=== PATIENT | male | born 1985 | race Caucasian/White ===

== ENCOUNTER 2020-04-16 17:27 | Emergency (ER) | payer OTHER, SELFPAY ==
[2020-04-16] VITALS (7 sets, daily range): BP systolic 137–153; BP diastolic 86–92; PULSE 75–97; RESP 15–22; TEMP 36.4; O2SAT 95–98
--- NOTE | ~2020-04-16 | XR_ITS ---
EXAMINATION: XR chest 2V DATE: 04/16/2020 19:25 INDICATION: Chest tightness, lightheadedness, nausea and arm tingling. TECHNIQUE: PA and lateral views of the chest were obtained. COMPARISON: Chest radiograph dated 10/05/2011 FINDINGS: The lungs remain clear with no focal airspace opacities, pulmonary edema, pleural effusion or pneumot horax. The cardiomediastinal silhouette is normal. Cholecystectomy clips in right upper quadrant. Bon es are unremarkable. IMPRESSION: 1. No acute cardiopulmonary disease. Reviewed, dictated and finalized at location H. ENT FORM ASSEMBLER
--- NOTE | 2020-04-16 18:04 | ECG_ITS ---
Measurements Intervals [place] Rate: 92 P: 81 HI: 213 QRS: 40 QRSD: 89 T: -7 QT: 328 QTc: 406 Interpretive Statements ATRIAL TACHYCARDIA WITH VARIABLE BLOCK NONSPECIFIC T-WAVE ABNORMALITY- INFERIOR LEADS ABNORMAL ECG Electronically Signed On 04-17-2020 8:16:39 HANDBOOK WRITER by Quinn Sawant D.O.
--- NOTE | 2020-04-16 18:17 | ED.CHESTPAIN ---
HPI - Chest Pain General Chief Complaint: Chest Pain Stated Complaint: CHEST TIGHTNESS, L ARM HEAVINESS Time Seen by Provider: 04/16/20 18:07 Source: patient Mode of arrival: ambulatory Limitations: no limitations History of Present Illness HPI narrative: This is a 34-year-old male that presents the emergency department for an episode of chest tightness today. Reports he was at work after lunch. Reports he stood up and started to feel very lightheaded. He noted tightness in his chest. He suddenly felt nauseous and vomited. Reports since that time he has just not felt right today. Reports 5 days ago he had a syncopal episode. Reports he felt like he needed to belch and the next thing he remembers he was on the floor. Reports they called EMS, but he did not want to be evaluated. Reports history of SVT and abnormal heart rhythm for which she sees an telephone surveyor at [place]. Does still have some chest discomfort and reflux. Denies fever, shortness of breath, or lower extremity edema. Related Data Home Medications Medication Instructions Recorded Confirmed lisinopril 20 mg tablet 20 mg PO DAILY 12/31/19 01/08/20 Allergies Allergy/AdvReac Type Severity Reaction Status Date / Time codeine Allergy Mild Unknown Verified 04/16/20 18:51 iodine Allergy Mild Unknown Verified 04/16/20 18:51 mold Allergy Mild Unknown Verified 04/16/20 18:51 shellfish derived Allergy Mild Cough Verified 04/16/20 18:51 SEAFOOD Allergy Mild Cough Uncoded 12/31/19 08:44 Review of Systems Review of Systems: Narrative: CONSTITUTIONAL: Denies fever CARDIOVASCULAR: Reports chest pain. Denies palpitations, or edema. RESPIRATORY: Denies cough or dyspnea. GASTROINTESTINAL: Reports nausea, vomiting All systems reviewed & are unremarkable except as noted in HPI and below PMFSH Past Medical History Medical History (Updated 04/16/20 @ 21:50 by Zoila Fields PA-C) History of hypothyroidism History of paroxysmal supraventricular tachycardia Hypertension Surgical History Surgical History H/O cardiac radiofrequency ablation History of cholecystectomy Family History Family History Mother Patient's mother is in good health Father Family history of thyroid disease Family history of gastrointestinal disorder Sibling Family history of thyroid disease Social History Social History Smoking status: Never smoker Second hand tobacco smoke exposure: No Alcohol intake: current Drinks per week: 42 Substance use: never Gender identity (if verbalized by the patient): Male Exam Narrative: Exam Narrative: GENERAL: Well-appearing, well-nourished, and in no acute distress. HEAD: Normocephalic, atraumatic. EYES: PERRLA and EOMI. ENT: Nares clear, no rhinorrhea or epistaxis. Mucous membranes moist. Oropharynx without tonsillar hypertrophy exudate or other lesions. Bilateral TMs pearly wilson non-bulging NECK: Supple. No adenopathy or masses. No carotid bruits or JVD CHEST: Clear to auscultation. No respiratory distress. No wheezes rales or rhonchi HEART: Regular rate and rhythm. No murmur heard. Normal peripheral pulses. EXTREMITIES: Normal range of motion. No edema. SKIN: Warm, dry, no rash. NEURO: No focal deficits. Alert and oriented x3. PSYCH: Normal mood and affect Course Vital Signs Vital signs: Vital Signs Temperature 97.5 F L 04/16/20 17:41 Pulse Rate 97 04/16/20 17:41 Respiratory Rate 16 04/16/20 17:41 Blood Pressure 137/92 H 04/16/20 17:41 Pulse Oximetry 95 04/16/20 17:41 Temperature 97.5 F L 04/16/20 17:41 Pulse Rate 82 04/16/20 19:40 Respiratory Rate 18 04/16/20 19:40 Blood Pressure 153/86 H 04/16/20 19:40 Pulse Oximetry 98 04/16/20 19:40 MDM - Chest Pain MDM Narrative Medical decision making narrative: Patient p
[2020-04-16 18:23] LABS: Basophils Absolute Auto 0.1 K/mm3 (0.0-0.1); Eosinophils Absolute Auto 0.1 K/mm3 (0-0.3); Eosinophils Percent Auto 1.9 % (0-4.4); Hematocrit 46.1 % (42.0-52.0); Hemoglobin 16.5 g/dL (14.0-18.0); Immature Granulocyte Absolute 0.03 K/mm3 (0.00-0.031); Immature Granulocyte Percent A 0.5 % (0-0.5); Lymphocytes Absolute Auto 2.33 K/mm3 (0.9-3.2); Lymphocytes Percent Auto 37.2 % (18.3-44.2); Mean Corpuscular HGB Conc 35.8 g/dl (32-36); Mean Corpuscular Hemoglobin 31.1 pg (26-34); Mean Corpuscular Volume 86.8 fl (80-100); Mean Platelet Volume 9.6 fl (7.4-10.4); Monocytes Absolute Auto 0.4 K/mm3 (0.1-0.6); Monocytes Percent Auto 6.5 % (2.6-8.5); Neutrophils Absolute Auto 3.3 K/mm3 (1.3-6.7); Neutrophils Percent Auto 52.9 % (45.5-73.1); Platelet Count Result 268 k/mm3 (150-375); Red Blood Count 5.31 M/mm3 (4.6-6.20); Red Cell Distribution Width 11.6 % (11.5-14.5); White Blood Count 6.3 K/mm3 (4.5-10.0)
[2020-04-16 18:35] LABS: Anion Gap 11 mmol/L (8-16); Blood Urea Nitrogen 13 mg/dL (9-20); Calcium 9.7 mg/dL (8.4-10.2); Carbon Dioxide 30 mmol/L (22-30); Chloride 99 mmol/L (98-107); Estimated CRCL calculation 118 ml/min; Estimated Glomerular Filt Rate > 60; Glucose 100 mg/dL (75-110); INR 0.9; Prothrombin Time 13.2 Seconds (11.1-14.7); Sodium 140 mmol/L (137-145)
[2020-04-16 18:36] LABS: Partial Thromboplastin Time 24.6 SECONDS (22.3-36.8)
[2020-04-16 18:46] LABS: Troponin I < 0.012 ng/mL (0.000-0.034)
[2020-04-16] MEDS: FAMOTIDINE 20 MG/2 ML VIAL IV PUSH (18:48)
[2020-04-16 19:10] LABS: D Dimer 0.27 ug/mL (<0.48)
--- NOTE | 2020-04-16 19:41 | PC.NURSE ---
Assumed care of pt. at this time. Report from DEE DEE Weiss
[2020-04-16 20:00] LABS: Free T4 Free Thyroxine Reflex 1.18 ng/dL (0.78-2.19)
[2020-04-16 20:46] LABS: Total Triiodothyronine (T3) 1.41 NG/ML (0.97-1.69)
[2020-04-16 20:56] LABS: Magnesium 1.7 mg/dL (1.6-2.3)
[2020-04-16 21:32] LABS: Troponin I < 0.012 ng/mL (0.000-0.034)
== END 2020-04-16 22:03 | disposition home or self-care (01) ==
PROVIDERS: Emergency Medicine; Physician Assistant; Emergency Provider Emergency Medicine; PCP Physician Assistant
DX: R55 Syncope and collapse (principal); R07.9 Chest pain, unspecified; E03.9 Hypothyroidism, unspecified; I47.1 Supraventricular tachycardia; I10 Essential (primary) hypertension
CPT/HCPCS: 36415; 71046; 80048; 83735; 84439; 84443; 84480; 84484; 85025; 85380; 85610; 85730; 93005; 96374; 96375; 99284; J0131

== ENCOUNTER 2022-01-27 00:10 | Day surgery (SDC) | payer OTHER, SELFPAY ==
[2022-01-18 13:20] VITALS: BMI 33.3
--- NOTE | 2022-01-27 08:06 | WPDANESEPPF ---
Anes - Initial Pre Proc Eval Procedure: Operation Date: 01/27/22 09:45 Proposed Procedures p Esophagogastroduodenoscopy EGD - Jhon Will MD Date/Time: 01/27/22 08:06 Surgeon: Jhon Will MD Pre Op Diagnosis: GERD Patient Data Age: 36 Gender: M Height: 1.75 m Weight: 102.3 kg Allergies Allergy/AdvReac Type Severity Reaction Status Date / Time codeine Allergy Mild Unknown Verified 01/27/22 08:32 iodine Allergy Mild Unknown Verified 01/27/22 08:32 mold Allergy Mild Unknown Verified 01/27/22 08:32 shellfish derived Allergy Mild Cough Verified 01/27/22 08:32 SEAFOOD Allergy Mild Cough Uncoded 01/27/22 08:32 Home Medications Medication Instructions Recorded Confirmed Type lisinopril 20 mg tablet 20 mg PO DAILY 12/31/19 01/18/22 History duloxetine 30 mg capsule,delayed See Rx Instructions .Route 03/17/20 01/18/22 Rx release .COMPLEX #30 caps cetirizine 10 mg tablet (Zyrtec) 10 mg PO DAILY 05/06/20 01/18/22 History cholecalciferol (vitamin D3) 125 125 mcg PO DAILY 05/06/20 01/18/22 History mcg (5,000 unit) capsule colchicine 0.6 mg tablet 0.6 mg PO DAILY 05/06/20 01/18/22 History Synthroid 75 mcg tablet See Rx Instructions .Route 03/30/21 01/18/22 Rx (levothyroxine) .COMPLEX #30 tabs esomeprazole magnesium 40 mg See Rx Instructions .Route 06/08/21 01/18/22 Rx capsule,delayed release .COMPLEX #30 caps ezetimibe 10 mg tablet 10 mg PO DAILY 01/18/22 01/18/22 History Patient hx anesthesia problems: none Family hx anesthesia problems: none Results Review: All pre-operative results and documents have been reviewed as part of the pre-operative evaluation. [facility] Past Medical History Medical History (Updated 01/27/22 @ 08:07 by Earl Oakes MD) Anxiety Gout History of hypothyroidism History of paroxysmal supraventricular tachycardia Hyperlipidemia Hypertension Obesity (BMI 30.0-34.9) JONAS (obstructive sleep apnea) Ulcer Surgical History Surgical History H/O cardiac radiofrequency ablation History of cholecystectomy Family History Family History Mother Patient's mother is in good health Father Family history of thyroid disease Family history of gastrointestinal disorder Sibling Family history of thyroid disease Social History Social History Smoking packs per day: 1 Smoking cigarettes per day: 20.0 Years smoked: 7 Smoking pack-years: 7.00 Smoking status: Former smoker Tobacco type: cigarettes Second hand tobacco smoke exposure: No Alcohol intake: current Drinks per week: 42 Alcohol use details: 6 beers daily Substance use: never Substance use type: does not use Living arrangements: with family Gender identity (if verbalized by the patient): Male Spiritual care concerns: No Anes - Eval Final PreProcedure Day of Procedure 01/27/22 08:06 Patient weight: obese Heart: regular rate and rhythm Lungs: clear to auscultation and normal air movement Airway: Mallampati scale class II Neurological: alert and oriented Last oral intake: >/= 8 hours ASA classification: III Emergent: no Anesthetic plan: proceed Anesthesia type and monitoring: general GIVS Results Review: All pre-operative results and documents have been reviewed as part of the pre-operative evaluation. Informed Consent: The patient's anesthetic plan and its attendant risks and benefits were discussed with the patient/family/POA. Questions were solicited and answers provided to the satisfaction of the patient/family/POA.
[2022-01-27 08:34] VITALS: BP 124/79; PULSE 88; RESP 18; TEMP 36.2; O2SAT 98
[2022-01-27] MEDS: LACTATED RINGERS 1,000 ML 150 ML IV CONT (08:46)
--- NOTE | 2022-01-27 09:21 | PM.HPGS ---
History of Present Illness History of Present Illness Consent: Risks, benefits, and alternatives have been discussed and questions answered. Patient agrees to proceed with procedure. Chief complaint: GERD Narrative: Jose Salas is a 36 year old male with intermittent upper abdominal pain using nexium, he says that had ulcers in the past Review of Systems Constitutional: Constitutional: Denies headache(s) and Denies weakness Eyes: Eyes: Denies blurry vision ENT: Reports Normal hearing present, Denies headache(s) and Denies neck pain Cardiovascular: Cardiovascular: Denies chest pain and Denies dyspnea Respiratory: Respiratory: Denies dyspnea Gastrointestinal: Gastrointestinal: Reports no additional gastrointestinal complaints Genitourinary: Genitourinary: Denies dysuria Musculoskeletal: Musculoskeletal: Denies neck pain Integumentary/Breasts: Skin/Breast: Denies dry skin Neurologic: Reports Normal hearing present, Denies headache(s) and Denies weakness Psychiatric: Psychiatric: Denies anxiety Endocrine: Endocrine: Denies change in body appearance Hematologic/Lymphatic: Hematologic/Lymphatic: Denies easy bleeding Allergic/Immunologic: Allergic/Immunologic: Denies urticaria PMFSH Past Medical History Medical History (Updated 01/27/22 @ 09:21 by Jhon Will MD) Anxiety Gout History of hypothyroidism History of paroxysmal supraventricular tachycardia Hyperlipidemia Hypertension Obesity (BMI 30.0-34.9) JONAS (obstructive sleep apnea) Ulcer Upper abdominal pain Surgical History Surgical History H/O cardiac radiofrequency ablation History of cholecystectomy Family History Family History Mother Patient's mother is in good health Father Family history of thyroid disease Family history of gastrointestinal disorder Sibling Family history of thyroid disease Social History Social History Smoking packs per day: 1 Smoking cigarettes per day: 20.0 Years smoked: 7 Smoking pack-years: 7.00 Smoking status: Former smoker Tobacco type: cigarettes Second hand tobacco smoke exposure: No Alcohol intake: current Drinks per week: 42 Alcohol use details: 6 beers daily Substance use: never Substance use type: does not use Living arrangements: with family Gender identity (if verbalized by the patient): Male Spiritual care concerns: No Meds Home Medications and Allergies Home Medications Medication Instructions Recorded Confirmed Type lisinopril 20 mg tablet 20 mg PO DAILY 12/31/19 01/18/22 History duloxetine 30 mg capsule,delayed See Rx Instructions .Route 03/17/20 01/18/22 Rx release .COMPLEX #30 caps cetirizine 10 mg tablet (Zyrtec) 10 mg PO DAILY 05/06/20 01/18/22 History cholecalciferol (vitamin D3) 125 125 mcg PO DAILY 05/06/20 01/18/22 History mcg (5,000 unit) capsule colchicine 0.6 mg tablet 0.6 mg PO DAILY 05/06/20 01/18/22 History Synthroid 75 mcg tablet See Rx Instructions .Route 03/30/21 01/18/22 Rx (levothyroxine) .COMPLEX #30 tabs esomeprazole magnesium 40 mg See Rx Instructions .Route 06/08/21 01/18/22 Rx capsule,delayed release .COMPLEX #30 caps ezetimibe 10 mg tablet 10 mg PO DAILY 01/18/22 01/18/22 History Allergies Allergy/AdvReac Type Severity Reaction Status Date / Time codeine Allergy Mild Unknown Verified 01/27/22 08:32 iodine Allergy Mild Unknown Verified 01/27/22 08:32 mold Allergy Mild Unknown Verified 01/27/22 08:32 shellfish derived Allergy Mild Cough Verified 01/27/22 08:32 SEAFOOD Allergy Mild Cough Uncoded 01/27/22 08:32 Vital Signs Vital Signs - 24 hr 01/27/22 08:34 Temperature 97.1 F L Pulse Rate 88 Respiratory Rate 18 Blood Pressure 124/79 Pulse Oximetry 98 Exam Const: General: comfortable and no acute distress [facility]
[2022-01-27 09:31] VITALS: BP 126/82; PULSE 93; RESP 22; O2SAT 97
[2022-01-27 09:41] VITALS: BP 132/81; PULSE 77; RESP 18; O2SAT 99
[2022-01-27 09:51] VITALS: BP 126/77; PULSE 68; RESP 20; O2SAT 100
== END 2022-01-27 10:03 | disposition home or self-care (01) ==
PROVIDERS: PCP Physician Assistant; Visit Provider Internal Medicine Gastroenterology
PROC: 0DJ08ZZ Inspection of Upper Intestinal Tract, Via Natural or Artificial Opening Endoscopic (ICD-10-PCS; CPT 43235; principal; 2022-01-27 09:45)
DX: K21.9 Gastro-esophageal reflux disease without esophagitis (principal); R10.13 Epigastric pain; R10.10 Upper abdominal pain, unspecified; F41.9 Anxiety disorder, unspecified; E03.9 Hypothyroidism, unspecified; I47.1 Supraventricular tachycardia; G47.33 Obstructive sleep apnea (adult) (pediatric); I10 Essential (primary) hypertension; Z90.49 Acquired absence of other specified parts of digestive tract; Z87.891 Personal history of nicotine dependence
CPT/HCPCS: 43239; 88305; J2704; J7120

== ENCOUNTER 2023-06-20 10:32 | Emergency (ER) | payer OTHER, SELFPAY ==
--- NOTE | ~2023-06-20 | XR_ITS ---
EXAMINATION: XR ribs LT 2V DATE: 06/20/2023 11:06 INDICATION: Left chest pain post fall onto curb TECHNIQUE: 3 views of the left ribs were obtained. COMPARISON: Chest radiograph dated 04/16/2020 FINDINGS: Subtle non to minimally displaced fractures of the left sixth and seventh ribs. Left lung is clear wi th no focal airspace opacities, pulmonary heart size is normal. Implantable left pectoral cardiac mon itor. Small sclerotic bone island proximal left humerus. IMPRESSION: 1. Non to minimally displaced fractures of the anterolateral left sixth and seventh ribs. Reviewed, dictated and finalized at location A. EGLASS LAMINATOR IMPRESSION: 1. Non to minimally displaced fractures of the anterolateral left sixth and sev enth ribs.
[2023-06-20 10:35] VITALS: BP 147/102; PULSE 107; RESP 16; TEMP 36.6; O2SAT 99
--- NOTE | 2023-06-20 12:54 | ED.FALL ---
HPI - Fall General Chief Complaint: Fall Stated Complaint: fall, rib injury Time Seen by Provider: 06/20/23 12:01 History of Present Illness HPI Narrative: Patient is a 37-year-old male presenting with left rib pain. Patient was walking out to his car in the ice when he slipped and fell against the curb. Landed on his left side. had immediate left-sided rib pain. He went to work for a while but the pain became unbearable so he came in for evaluation. Did not strike his head or lose consciousness. No neck or back pain. Ambulating without difficulty. Related Data Home Medications Medication Instructions Recorded Confirmed lisinopril 20 mg tablet 20 mg PO DAILY 12/31/19 01/18/22 cetirizine 10 mg tablet (Zyrtec) 10 mg PO DAILY 05/06/20 01/18/22 cholecalciferol (vitamin D3) 125 125 mcg PO DAILY 05/06/20 01/18/22 mcg (5,000 unit) capsule colchicine 0.6 mg tablet 0.6 mg PO DAILY 05/06/20 01/18/22 ezetimibe 10 mg tablet 10 mg PO DAILY 01/18/22 01/18/22 Allergies Allergy/AdvReac Type Severity Reaction Status Date / Time codeine Allergy Mild Unknown Verified 01/27/22 08:32 iodine Allergy Mild Unknown Verified 01/27/22 08:32 mold Allergy Mild Unknown Verified 01/27/22 08:32 shellfish derived Allergy Mild Cough Verified 01/27/22 08:32 SEAFOOD Allergy Mild Cough Uncoded 01/27/22 08:32 Review of Systems Review of Systems: All systems reviewed & are unremarkable except as noted in HPI and below PMFSH Past Medical History Medical History Anxiety Gout History of hypothyroidism History of paroxysmal supraventricular tachycardia Hyperlipidemia Hypertension Obesity (BMI 30.0-34.9) JONAS (obstructive sleep apnea) Ulcer Upper abdominal pain Surgical History Surgical History H/O cardiac radiofrequency ablation History of cholecystectomy Family History Family History Mother Patient's mother is in good health Father Family history of thyroid disease Family history of gastrointestinal disorder Sibling Family history of thyroid disease Social History Social History Smoking packs per day: 1 Smoking cigarettes per day: 20.0 Years smoked: 7 Smoking pack-years: 7.00 Smoking status: Former smoker Tobacco type: cigarettes Second hand tobacco smoke exposure: No Alcohol intake: current Drinks per week: 42 Alcohol use details: 6 beers daily Substance use: never Substance use type: does not use Living arrangements: with family Gender identity (if verbalized by the patient): Male Spiritual care concerns: No Exam Narrative: GENERAL: Uncomfortable appearing, no acute distress HEAD: Normocephalic, atraumatic. EYES: PERRLA and EOMI. ENT: grossly unremarkable NECK: Supple. CHEST: Clear to auscultation. No respiratory distress. HEART: Regular rate and rhythm ABDOMEN: Soft, nontender, nondistended EXTREMITIES: Normal range of motion. SKIN: Warm, dry, no rash. NEURO: No focal deficits. Alert and oriented x3. PSYCH: Normal mood and affect. Course Vital Signs Vital signs: Vital Signs Temperature 97.8 F 06/20/23 10:35 Pulse Rate 107 H 06/20/23 10:35 Respiratory Rate 16 06/20/23 10:35 Blood Pressure 147/102 H 06/20/23 10:35 Pulse Oximetry 99 06/20/23 10:35 Oxygen Delivery Room Air 06/20/23 10:35 Temperature 97.8 F 06/20/23 10:35 Pulse Rate 107 H 06/20/23 10:35 Respiratory Rate 20 06/20/23 13:14 Blood Pressure 147/102 H 06/20/23 10:35 Pulse Oximetry 99 06/20/23 13:14 Oxygen Delivery Room Air 06/20/23 10:35 MDM - Fall MDM Narrative Medical decision making narrative: 37-year-old male presenting with left-sided rib pain after slipping on the ice. Vitals are stable. Exam remarkable for the above. X
[2023-06-20] MEDS: ACETAMINOPHEN 325 MG TABLET 650 MG PO (12:59)
[2023-06-20] MEDS: NAPROXEN 500 MG TABLET PO (13:00)
--- NOTE | 2023-06-20 13:01 | PC.NURSE ---
patient refused norco at this time. provider aware
[2023-06-20 13:14] VITALS: RESP 20; O2SAT 99
== END 2023-06-20 13:25 | disposition home or self-care (01) ==
PROVIDERS: Emergency Provider Emergency Medicine; PCP Physician Assistant
DX: S22.42XA Multiple fractures of ribs, left side, initial encounter for closed fracture (principal); I10 Essential (primary) hypertension; E03.9 Hypothyroidism, unspecified; E78.5 Hyperlipidemia, unspecified; E66.9 Obesity, unspecified; Z68.32 Body mass index [BMI] 32.0-32.9, adult; G47.33 Obstructive sleep apnea (adult) (pediatric); M10.9 Gout, unspecified; Z87.891 Personal history of nicotine dependence; Z90.49 Acquired absence of other specified parts of digestive tract; W00.0XXA Fall on same level due to ice and snow, initial encounter
CPT/HCPCS: 71100; 99283; A9270

== ENCOUNTER 2024-05-25 14:22 | Outpatient (CLI) | payer OTHER, SELFPAY ==
--- NOTE | ~2024-05-25 | US_ITS ---
TESTICULAR ULTRASOUND (Doppler ultrasound interrogation techniques used as needed for this exam.) Ordering provider: Sierra New, [place] History: . Testicular pain . Comparison: None. FINDINGS: TESTICLES: Normal in size. The right measures 4.2x 2.8x 4 cm and the left measures 4.5x 2.6x 4.3 cm. Normal echogenicity bilaterally without mass lesion. Normal Doppler flow bilaterally. EPIDIDYMIDES: Normal in size. The right measures 1.4x 1.2 cm and the left 0.7x 0.8 cm. Normal echogen icity bilaterally. Both demonstrate normal Doppler flow. HYDROCELE: Small right VARICOCELE: None. OTHER ABNORMALITY: None seen. No definite abnormality seen in the left groin. IMPRESSION: Small right hydrocele. Otherwise, normal testicular ultrasound. Reviewed, dictated and finalized at location A. OPERATOR
== END 2024-05-25 14:23 | disposition home or self-care (01) ==
PROVIDERS: PCP Physician Assistant; Visit Provider Physician Assistant
DX: N43.3 Hydrocele, unspecified (principal); N50.819 Testicular pain, unspecified
CPT/HCPCS: 76870; 93976

== ENCOUNTER 2024-06-27 08:25 | Outpatient (CLI) | payer OTHER, SELFPAY ==
--- NOTE | ~2024-06-27 | CT_ITS ---
EXAMINATION: CT abdomen pelvis wo con DATE: 06/27/2024 08:43 INDICATION: Left lower quadrant abdominal pain. TECHNIQUE: Computed tomography (CT) of the abdomen and pelvis was performed without intravenous contr ast. Automated exposure control and iterative reconstruction technique were employed. The dose-length product was 1118.61 mGy-cm. COMPARISON: CT pelvis 01/19/2015 FINDINGS: The visualized portions of lung bases demonstrate mild atelectasis. No pleural effusion. Th e heart size is normal. No pericardial effusion. There is diffuse hepatic steatosis. There are change s of cholecystectomy. The spleen, pancreas, adrenal glands, and kidneys are normal. There is no uroli thiasis. There is prominent fat in the inguinal canals. There are no dilated loops of bowel. The appe ndix is normal. There are no pathologically enlarged lymph nodes. There is no free intraperitoneal fl uid. There is mild thoracic and lumbar spondylosis. IMPRESSION: 1. Prominent fat in the inguinal canals, which may be hernias. 2. Diffuse hepatic steatosis. Reviewed, dictated and finalized at location A. VER DRIVER
== END 2024-06-27 08:26 | disposition home or self-care (01) ==
PROVIDERS: PCP Physician Assistant; Visit Provider Physician Assistant
DX: D17.6 Benign lipomatous neoplasm of spermatic cord (principal)
CPT/HCPCS: 74176